=== PATIENT | male | born 1940 | race Caucasian/White ===

== ENCOUNTER → 2016-11-22 | Outpatient (CLI) | payer MEDICARE, BC ==
[~2016-11-22] MED LIST: ASPIRIN PO; BISOPROLOL-HCTZ1 TA2 PO; COUMADIN PO; COUMADIN2.5 MG PO; CRESTOR PO; KLONOPIN1 MG PO; LIPITOR; NORCO 5/325 TAB1 TAB PO; REMERON15 MG PO; TRILIPIX135 MG PO; WARFARIN SODIUM2 M1 PO; ZETIA PO
--- NOTE | ~2016-11-22 | CT57 ---
[facility] A Service of [facility] RADIOLOGY TEXT RESULTS PATIENT: CARLA CANAS LOCATION: [facility] : 44 UNIT #: [id number] AGE: [address]: Vince Elizalde MD SEX: M ORDER DR: [id number] [address] [place], [place] [address] [id number] MR#: [id number] Acc #: [id number] NAME: CARLA CANAS : 1940 SEX: M STUDY DATE/TIME: 11/22/2016 14:52 UNIT: [facility] ROOM: STUDY DESCRIPTION: CT Chest Wo Cont Attending Physician: Vince Elizalde M.D. Ordering Physician: Vince Elizalde M.D. Primary Care Physician: Jennie Cutler M.D. MEDICAL IMAGING REPORT This report is preliminary unless electronic signature is present EXAM High-resolution chest CT without contrast INDICATION 76-year-old male with shortness of breath for [address] of the chest was performed without contrast. Selected HRCT imaging obtained in the supine and prone positioning. This CT exam was performed with one or more of the following radiation dose reduction techniques: automatic exposure control, adjustment of mA and/or kV according to patient size, and iterative reconstruction. COMPARISON Comparison with 05/07/2015. FINDINGS There is some stable minimal scarring in the lung bases. Selected HRCT imaging demonstrates no evidence of bronchiectasis or diffuse infiltrative lung disease. No honeycombing. Stable thyroid nodule. Prior sternotomy and CABG. No lymphadenopathy or pleural effusion. Limited imaging of the upper abdomen demonstrates cholelithiasis. Renal cysts. Bone windows demonstrate degenerative changes of the thoracic spine. IMPRESSION Stable minimal fibrotic changes. No evidence of bronchiectasis, diffuse infiltrative lung disease, or honeycombing. Dictated by... Chivo Bustillo M.D. THIS IS AN ELECTRONICALLY VERIFIED REPORT [facility] A Service of [facility] RADIOLOGY TEXT RESULTS PATIENT: CARLA CANAS LOCATION: [facility] : 44 UNIT #: [id number] AGE: [address]: Vince Elizalde MD SEX: M ORDER DR: Chivo Bustillo M.D. at 11/24/2016 11:31 AM CRICKET/venus TD: 11/23/2016 15:42 JOB #: [id number] MEDICAL IMAGING REPORT Page 1 of 1 COPY
== END | disposition home or self-care (01) ==
LOC: CCAT 14:26
DX: J84.10 Pulmonary fibrosis, unspecified (principal)
CPT/HCPCS: 71250

== ENCOUNTER 2017-03-02 17:25 | Emergency (ER) | payer MEDICARE, BC ==
--- NOTE | ~2017-03-02 | CR72 ---
[facility] A Service of [facility] RADIOLOGY TEXT RESULTS PATIENT: CARLA CANAS LOCATION: [facility] : 44 UNIT #: [id number] AGE: [address]: Kristian Gordon MD SEX: M ORDER DR: [id number] [facility] [address] [place], [place] [address] [id number] MR#: [id number] Acc #: [id number] NAME: CARLA CANAS. : 1940 SEX: M STUDY DATE/TIME: 03/02/2017 21:04 UNIT: [facility] ROOM: STUDY DESCRIPTION: CR Chest Single View Portable Attending Physician: Kristian Gordon M.D. Ordering Physician: Kristian Gordon M.D. Primary Care Physician: Jennie Cutler M.D. MEDICAL IMAGING REPORT This report is preliminary unless electronic signature is present EXAM Single view of the chest, 03/02/2017 COMPARISON Chest two views dated 06/12/2013. HISTORY Shortness of air with difficulty breathing today. It has been going on for some years. FINDINGS Single view of the chest was obtained. Postoperative cardiac changes with stable cardiomegaly. Lungs do not demonstrate any superimposed acute abnormality. 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 Dictated by... Yola Anders M.D. THIS IS AN ELECTRONICALLY VERIFIED REPORT Yola Anders M.D. at 03/03/2017 2:25 PM CPR/ljd TD: 03/02/2017 23:36 JOB #: [id number] MEDICAL IMAGING REPORT Page 1 of 1 COPY
--- NOTE | ~2017-03-02 | EKG ---
PATIENT: CARLA CANAS UNIT #: [id number] Ventricular Rate: 55 BPM Atrial Rate: 468 BPM QRS Duration: 110 ms Q-T Interval: 462 ms QTC Calculation(Bezet): 441 ms Calculated R Bonita: 76 degrees Calculated T Bonita: -60 degrees Diagnosis Line: Atrial fibrillation with slow ventricular response Diagnosis Line: with premature ventricular or aberrantly conducted Diagnosis Line: complexes Diagnosis Line: Incomplete left bundle branch block Diagnosis Line: Nonspecific ST and T wave abnormality Diagnosis Line: Abnormal ECG Diagnosis Line: When compared with ECG of 08-AUG-2012 13:55, Diagnosis Line: No significant change was found Diagnosis Line: Confirmed by JESS KAYE MD ([id number]) on 03/03/2017 Diagnosis Line: 8:25:59 PM INTERPRETING MD: VARGAS CALLAWAY
[2017-03-02 19:03] LABS: BASOPHIL% 0.3 % (0-2.5); EOSINOPHIL% 0.2 % (0.0-7.0); HEMATOCRIT 49.9 % (38.0-50.0); HEMOGLOBIN 16.5 gm/dL (13.0-16.0); LYMPHOCYTE% 10.7 % (17.0-45.0); MEAN CELL VOLUME 91.2 FL (83-96); MEAN CORPUSCULAR HEMOGLOBIN 30.1 PG (28-34); MEAN PLATELET VOLUME 6.8 FL (6.5-11.5); MONOCYTE# 0.6 X10e3 (0-1.0); NEUTROPHIL# 7.6 X10e3 (1.5-7.1); NEUTROPHIL% 81.8 % (40-75); PLATELET COUNT 216 X10e3 (140-420); RED BLOOD COUNT 5.47 X10e (3.90-5.60); RED CELL DISTRIBUTION WIDTH 15.1 % (11.0-15.5); WHITE BLOOD COUNT 9.2 X10e3 (4.0-10.5)
[2017-03-02 19:07] LABS: DIFF IND NO
[2017-03-02 20:19] LABS: ALBUMIN SERUM 4.2 g/dL (3.5-5.0); BILIRUBIN, DIRECT 0.2 mg/dL (0.0-0.2); BILIRUBIN,INDIRECT 0.4 mg/dL (0.0-0.9); BILIRUBIN,TOTAL 0.6 mg/dL (0.2-2.0); BUN/CREATININE RATIO 9.09; CALCIUM SERUM 9.3 mg/dL (8.4-10.2); CREATININE SERUM 1.1 mg/dL (0.6-1.4); GLOM FILT RATE Estimated 65.8 mL/min (>60); POTASSIUM 3.3 mmol/L (3.5-5.1); PROTEIN TOTAL SERUM 7.2 g/dL (6.0-8.3)
[2017-03-02 20:59] LABS: POC - CKMB 1.5 ng/mL (0.0-7.9); POC - TROPONIN <0.05 ng/mL (<=0.05)
[2017-03-02 21:42] LABS: POC - CKMB 1.2 ng/mL (0.0-7.9); POC - TROPONIN <0.05 ng/mL (<=0.05)
[2017-03-02 21:44] LABS: INR 2.6; PARTIAL THROMBOPLASTIN TIME 36.4 SECONDS (23.5-31.3); PROTHROMBIN TIME (PATIENT) 27.8 SECONDS (10.0-11.7)
== END 2017-03-02 22:30 | disposition home or self-care (01) ==
LOC: CED 17:25
PROVIDERS: Emergency Medicine
DX: R06.02 Shortness of breath (principal); E11.9 Type 2 diabetes mellitus without complications; I48.91 Unspecified atrial fibrillation; I25.2 Old myocardial infarction; I25.10 Atherosclerotic heart disease of native coronary artery without angina pectoris; E78.5 Hyperlipidemia, unspecified; I10 Essential (primary) hypertension; Z79.01 Long term (current) use of anticoagulants; Z88.0 Allergy status to penicillin; Z88.2 Allergy status to sulfonamides; Z95.1 Presence of aortocoronary bypass graft
CPT/HCPCS: 36415; 71010; 80048; 80076; 82553; 83880; 84484; 85025; 85610; 85730; 93005; 99285